=== PATIENT | male | born 1960 | race African-American/Black ===

== ENCOUNTER 2018-12-29 08:25 | Inpatient (IN) | payer MEDICAID ==
[~2018-12-29] VITALS: Ht 157.5 cm; Wt 110.2 kg
[2018-12-29] MEDS ORDERED: MORPHINE SULFATE 4 MG/ML CPJ (NOT FOR IM USE) IV ONE (10:45)
[2018-12-29 11:07] LABS: BASOPHILS % 0.6 % (0.0-2.0); EOSINOPHILS % 0.4 % (0.0-5.0); HEMATOCRIT. 37.9 % (42.0-52.0); HEMOGLOBIN. 12.7 g/dL (14.0-18.0); LYMPHOCYTES % 11.3 % (20.0-50.0); MEAN CORPUSCULAR HEMOGLOBIN 29.1 pg (28.0-32.0); MEAN CORPUSCULAR VOLUME 87.2 fL (80.0-94.0); MONOCYTES % 10.1 % (2.0-8.0); NEUTROPHILS % 77.6 % (40.0-76.0); PLATELET 318 x1000/uL (130-400); RED BLOOD CELL COUNT 4.35 mill/uL (4.7-6.1); RED CELL DISTRIBUTION WIDTH 14.3 % (11.6-14.6)
[2018-12-29 11:13] LABS: CHLORIDE 106 mEq/L (98-107)
[2018-12-29] MEDS ORDERED: MAGNESIUM/ALUMINUM HYDROXIDE/SIMETHICONE 30ML UDC PO PRN (13:00)
[2018-12-29] MEDS ORDERED: CLONIDINE 0.1MG TABLET PO PRN (13:00)
[2018-12-29] MEDS ORDERED: ONDANSETRON HCL 4MG/2ML INJ IV PRN (13:00)
[2018-12-29] MEDS ORDERED: GUAIFENESIN 200MG/10ML SUGAR FREE UDC PO PRN (13:00)
[2018-12-29] MEDS ORDERED: DOCUSATE SODIUM 100MG CAPSULE PO PRN (13:00)
[2018-12-29] MEDS ORDERED: POTASSIUM CHLORIDE 20MEQ/PACKET PO ONE (13:00)
[2018-12-29] MEDS ORDERED: DIPHENHYDRAMINE 50MG/ML VIAL IV PRN (13:00)
[2018-12-29 13:12] LABS: PHOSPHORUS 3.9 mg/dL (2.5-4.9)
[2018-12-29] MEDS ORDERED: ENOXAPARIN 40MG/0.4ML SYR SUBCUT NR (13:30)
[2018-12-30] VITALS (9 sets, daily range): BP systolic 119–166; BP diastolic 72–96
[2018-12-30] MEDS: HYDROCODONE/ACETAMINOPHEN 5/325MG TABLET PO PRN ×5 (00:40→13:46)
[2018-12-30 07:23] LABS: CHLORIDE 106 mEq/L (98-107)
[2018-12-30 07:31] LABS: BASOPHILS % 0.4 % (0.0-2.0); EOSINOPHILS % 0.6 % (0.0-5.0); HEMATOCRIT. 36.3 % (42.0-52.0); HEMOGLOBIN. 12.2 g/dL (14.0-18.0); LYMPHOCYTES % 13.7 % (20.0-50.0); MEAN CORPUSCULAR HEMOGLOBIN 29.4 pg (28.0-32.0); MEAN CORPUSCULAR VOLUME 87.7 fL (80.0-94.0); MEAN PLATELET VOLUME 9.1 fl (7.4-10.4); MONOCYTES % 13.1 % (2.0-8.0); NEUTROPHILS % 72.2 % (40.0-76.0); PLATELET 327 x1000/uL (130-400); RED BLOOD CELL COUNT 4.14 mill/uL (4.7-6.1); RED CELL DISTRIBUTION WIDTH 14.5 % (11.6-14.6)
[2018-12-30 07:35] LABS: LDL CHOLESTEROL 103 mg/dL (5-100)
[2018-12-30 07:37] LABS: HDL CHOLESTEROL 31 mg/dL (40-59)
[2018-12-30] MEDS ORDERED: POTASSIUM CHLORIDE 20MEQ/PACKET PO NR (12:30)
[2018-12-30 13:34] LABS: HEPATITIS B SURFACE ANTIGEN NEGATIVE
[2018-12-30] MEDS ORDERED: ENOXAPARIN 40MG/0.4ML SYR SUBCUT SCH (14:00)
[2018-12-30 14:03] LABS: HEPATITIS A AB IGM NEGATIVE (NEGATIVE)
[2018-12-30] MEDS: DEXAMETHASONE 4MG/ML 1ML VIAL IV SCH ×2 (14:08→21:20)
[2018-12-30 16:02] LABS: PROTHROMBIN TIME 10.7 sec (9.6-11.0)
[2018-12-30 16:12] LABS: CREATINE KINASE 1290 IU/L (39-308)
[2018-12-30 16:46] LABS: T4 FREE 1.18 ng/dL (0.76-1.46)
[2018-12-30] MEDS: CEFTRIAXONE 1 G PREMIX 50 ML IV SCH (18:45)
[2018-12-30] MEDS: IPRATROPIUM/ALBUTEROL 0.5-3(2.5)MG/3ML NEB INH PRN (21:03)
[2018-12-30] MEDS: BUDESONIDE 0.5MG/2ML NEB HHN SCH (21:03)
[2018-12-31] VITALS (67 sets, daily range): BP systolic 82–165; BP diastolic 50–96
[2018-12-31] MEDS: DEXAMETHASONE 4MG/ML 1ML VIAL IV SCH ×4 (02:52→20:21)
[2018-12-31 03:59] LABS: CLARITY URINE CLEAR (CLEAR); COLOR URINE DARK YELLOW (YELLOW); KETONES URINE NEGATIVE (NEGATIVE); LEUKOCYTE ESTERASE URINE NEGATIVE (NEGATIVE); NITRITE URINE NEGATIVE (NEGATIVE); OCCULT BLOOD URINE NEGATIVE (NEGATIVE); PH URINE 6.5 (4.5-8.0); PROTEIN URINE TRACE (NEGATIVE); SPECIFIC GRAVITY URINE 1.025 (1.005-1.030)
[2018-12-31 04:32] LABS: *AMPHETAMINES SCREEN URINE NEGATIVE (NEGATIVE); *BARBITURATES SCREEN URINE NEGATIVE (NEGATIVE); *BENZODIAZEPINES SCREEN URINE NEGATIVE (NEGATIVE); *COCAINE SCREEN URINE NEGATIVE (NEGATIVE); METHADONE URINE SCREEN NEGATIVE (NEGATIVE); OPIATES URINE SCREEN PRESUMTIVE POSITIVE (NEGATIVE)
[2018-12-31 04:33] LABS: CANNABINOID URINE SCREEN NEGATIVE (NEGATIVE); PHENCYCLIDINE URINE SCREEN NEGATIVE (NEGATIVE)
[2018-12-31] MEDS ORDERED: NORMAL SALINE 0.9% 10 ML SYR ONE (06:00)
[2018-12-31] MEDS ORDERED: THROMBIN (BOVINE) 5000 UNITS/VIAL TOP ONE (06:00)
[2018-12-31] MEDS ORDERED: BACITRACIN 50,000 UNITS/VIAL ONE (06:01)
[2018-12-31] MEDS ORDERED: LIDOCAINE HCL/EPINEPHRINE 1%-EPI 1:100,000 20 ML VIAL ONE (06:01)
[2018-12-31 06:29] LABS: CHLORIDE 106 mEq/L (98-107)
[2018-12-31 06:31] LABS: HEMATOCRIT. 36.2 % (42.0-52.0); HEMOGLOBIN. 11.9 g/dL (14.0-18.0); MEAN CORPUSCULAR HEMOGLOBIN 28.9 pg (28.0-32.0); MEAN CORPUSCULAR VOLUME 87.6 fL (80.0-94.0); PLATELET 345 x1000/uL (130-400); RED BLOOD CELL COUNT 4.13 mill/uL (4.7-6.1); RED CELL DISTRIBUTION WIDTH 14.3 % (11.6-14.6)
[2018-12-31] MEDS ORDERED: FENTANYL CITRATE/PF 50MCG/ML 5ML VIAL ONE (06:46)
[2018-12-31] MEDS ORDERED: PROPOFOL 200MG/20ML VIAL IV ONE ×2 (06:46→08:01)
[2018-12-31] MEDS ORDERED: LIDOCAINE HCL/PF 1% 10 MG/ML 5ML VIAL ONE (06:46)
[2018-12-31] MEDS ORDERED: ROCURONIUM BROMIDE 10MG/ML VIAL 5ML IV ONE ×2 (06:46→07:50)
[2018-12-31] MEDS ORDERED: SODIUM CHLORIDE 0.9% 10ML VIAL ONE ×3 (06:46→07:43)
[2018-12-31] MEDS ORDERED: PHENYLEPHRINE HCL 10 MG/ML 1ML (IV VIAL) IV ONE (06:49)
[2018-12-31] MEDS ORDERED: CEFAZOLIN SODIUM 1000MG/VIAL ONE (07:43)
[2018-12-31] MEDS ORDERED: DEXAMETHASONE 4MG/ML 1ML VIAL ONE (07:44)
[2018-12-31] MEDS ORDERED: NICARDIPINE 100 MG in SODIUM CHLORIDE 0.9% 60 ML IV PRN (08:00)
[2018-12-31] MEDS: BUDESONIDE 0.5MG/2ML NEB HHN SCH ×2 (08:39→20:36)
[2018-12-31] MEDS: IPRATROPIUM/ALBUTEROL 0.5-3(2.5)MG/3ML NEB INH PRN ×2 (08:40→20:35)
[2018-12-31] MEDS ORDERED: HYDROMORPHONE HCL/PF 2MG/ML (OR) ONE (08:42)
[2018-12-31 09:10] LABS: PLATELET ESTIMATE NORMAL
[2018-12-31] MEDS ORDERED: GLYCOPYRROLATE 0.2 MG/ML 2ML VIAL ONE (09:14)
[2018-12-31] MEDS ORDERED: NEOSTIGMINE METHYLSULFATE 1MG/ML 10 ML VIAL ONE (09:14)
[2018-12-31 09:17] LABS: HIV SCREEN 4G Non Reactive (Non Reactive)
[2018-12-31] MEDS ORDERED: METOCLOPRAMIDE HCL 10MG/2ML VIAL ONE (09:19)
[2018-12-31] MEDS ORDERED: ONDANSETRON HCL 4MG/2ML INJ ONE (09:19)
[2018-12-31] MEDS ORDERED: KETOROLAC 30MG/ML VIAL ONE (09:20)
[2018-12-31] MEDS: MORPHINE SULFATE 4 MG/ML CPJ (NOT FOR IM USE) IV PRN (10:27)
[2018-12-31] MEDS ORDERED: HYDROMORPHONE PCA 10MG/50ML IV PRN (10:30)
[2018-12-31] MEDS ORDERED: NALOXONE INJ IV PRN (10:30)
[2018-12-31] MEDS ORDERED: DIPHENHYDRAMINE INJ IV PRN (10:30)
[2018-12-31] MEDS ORDERED: ONDANSETRON INJ IV PRN (10:30)
[2018-12-31] MEDS: NICARDIPINE 100 MG in SODIUM CHLORIDE 0.9% 60 ML IV PRN ×2 (10:34→17:23)
[2018-12-31] MEDS: DEXT 5%/LACTATED RINGERS 1,000 ML IV SCH ×2 (10:36→18:09)
[2018-12-31] MEDS: MORPHINE SULFATE 2 MG/ML CPJ (NOT FOR IM USE) IV NR (11:00)
[2018-12-31] MEDS: CEFAZOLIN 1000MG PREMIX 50 ML IV SCH ×2 (13:35→21:32)
[2018-12-31] MEDS ORDERED: CEFAZOLIN SODIUM 1000MG/VIAL IV SCH (14:00)
[2018-12-31] MEDS ORDERED: BISACODYL 5MG TABLET PO PRN (14:15)
[2018-12-31] MEDS: DOCUSATE SODIUM 100MG CAPSULE PO SCH (17:00)
[2018-12-31] MEDS: CEFTRIAXONE 1 G PREMIX 50 ML IV SCH (18:13)
[2019-01-01] VITALS (71 sets, daily range): BP systolic 0–151; BP diastolic 0–99
[2019-01-01] MEDS: NICARDIPINE 100 MG in SODIUM CHLORIDE 0.9% 60 ML IV PRN ×2 (00:26→09:55)
[2019-01-01] MEDS: DEXAMETHASONE 4MG/ML 1ML VIAL IV SCH ×3 (02:00→13:59)
[2019-01-01 06:15] LABS: CHLORIDE 106 mEq/L (98-107)
[2019-01-01] MEDS: CEFAZOLIN 1000MG PREMIX 50 ML IV SCH (06:25)
[2019-01-01 06:30] LABS: HEMATOCRIT. 36.2 % (42.0-52.0); HEMOGLOBIN. 12.2 g/dL (14.0-18.0); MEAN CORPUSCULAR HEMOGLOBIN 29.5 pg (28.0-32.0); MEAN CORPUSCULAR VOLUME 87.7 fL (80.0-94.0); MEAN PLATELET VOLUME 8.8 fl (7.4-10.4); PLATELET 375 x1000/uL (130-400); RED BLOOD CELL COUNT 4.12 mill/uL (4.7-6.1); RED CELL DISTRIBUTION WIDTH 14.3 % (11.6-14.6)
[2019-01-01 07:28] LABS: PLATELET ESTIMATE NORMAL
[2019-01-01] MEDS: BUDESONIDE 0.5MG/2ML NEB HHN SCH ×3 (08:11→21:51)
[2019-01-01] MEDS: IPRATROPIUM/ALBUTEROL 0.5-3(2.5)MG/3ML NEB INH PRN (08:11)
[2019-01-01] MEDS: DOCUSATE SODIUM 100MG CAPSULE PO SCH ×2 (08:18→16:36)
[2019-01-01] MEDS: DEXT 5%/LACTATED RINGERS 1,000 ML IV SCH ×2 (13:24→21:50)
[2019-01-01] MEDS: AMLODIPINE 5MG TABLET PO SCH ×2 (16:37→21:48)
[2019-01-01] MEDS: CEFTRIAXONE 1 G PREMIX 50 ML IV SCH (18:03)
[2019-01-01] MEDS: MORPHINE SULFATE 4 MG/ML CPJ (NOT FOR IM USE) IV PRN (21:49)
[2019-01-02 00:15] VITALS: BP 124/70
[2019-01-02] MEDS: HYDROCODONE/ACETAMINOPHEN 5/325MG TABLET PO PRN (00:42)
[2019-01-02 04:00] VITALS: BP 120/70
[2019-01-02 06:30] LABS: HEMATOCRIT. 34.9 % (42.0-52.0); HEMOGLOBIN. 11.5 g/dL (14.0-18.0); LYMPHOCYTES % 7.4 % (20.0-50.0); MEAN CORPUSCULAR HEMOGLOBIN 28.7 pg (28.0-32.0); MEAN CORPUSCULAR VOLUME 87.1 fL (80.0-94.0); MONOCYTES % 7.3 % (2.0-8.0); NEUTROPHILS % 85.3 % (40.0-76.0); PLATELET 392 x1000/uL (130-400); RED BLOOD CELL COUNT 4.01 mill/uL (4.7-6.1); RED CELL DISTRIBUTION WIDTH 14.1 % (11.6-14.6)
[2019-01-02 06:31] LABS: CHLORIDE 108 mEq/L (98-107)
[2019-01-02] MEDS: DEXT 5%/LACTATED RINGERS 1,000 ML IV SCH ×3 (07:01→21:27)
[2019-01-02 08:00] VITALS: BP 139/79
[2019-01-02] MEDS: DOCUSATE SODIUM 100MG CAPSULE PO SCH ×2 (09:06→18:01)
[2019-01-02] MEDS: AMLODIPINE 5MG TABLET PO SCH ×2 (09:07→20:30)
[2019-01-02] MEDS: BUDESONIDE 0.5MG/2ML NEB HHN SCH ×2 (10:25→21:57)
[2019-01-02] MEDS: MORPHINE SULFATE 4 MG/ML CPJ (NOT FOR IM USE) IV PRN ×2 (10:50→20:30)
[2019-01-02 12:00] VITALS: BP 131/79
[2019-01-02 15:15] LABS: ATYPICAL P-ANCA <1:20 titer (Neg:<1:20); CYTOPLASMIC C-ANCA <1:20 titer (Neg:<1:20); PERINUCLEAR P-ANCA <1:20 titer (Neg:<1:20)
[2019-01-02 16:00] VITALS: BP 138/80
[2019-01-02] MEDS: CEFTRIAXONE 1 G PREMIX 50 ML IV SCH (18:01)
[2019-01-02 20:00] VITALS: BP 133/77
[2019-01-03] VITALS: BP 148/68
[2019-01-03 04:00] VITALS: BP 154/92
[2019-01-03] MEDS: DEXT 5%/LACTATED RINGERS 1,000 ML IV SCH ×3 (05:04→21:27)
[2019-01-03 07:07] LABS: BASOPHILS % 0.1 % (0.0-2.0); EOSINOPHILS % 0.6 % (0.0-5.0); HEMATOCRIT. 37.7 % (42.0-52.0); HEMOGLOBIN. 12.6 g/dL (14.0-18.0); MEAN CORPUSCULAR HEMOGLOBIN 29.3 pg (28.0-32.0); MEAN CORPUSCULAR VOLUME 87.8 fL (80.0-94.0); MEAN PLATELET VOLUME 8.5 fl (7.4-10.4); MONOCYTES % 10.6 % (2.0-8.0); NEUTROPHILS % 63.7 % (40.0-76.0); PLATELET 400 x1000/uL (130-400); RED CELL DISTRIBUTION WIDTH 14.2 % (11.6-14.6)
[2019-01-03 07:14] LABS: CHLORIDE 107 mEq/L (98-107)
[2019-01-03 08:00] VITALS: BP 111/56
[2019-01-03] MEDS: AMLODIPINE 5MG TABLET PO SCH ×2 (09:07→21:49)
[2019-01-03] MEDS: DOCUSATE SODIUM 100MG CAPSULE PO SCH ×2 (09:07→16:01)
[2019-01-03] MEDS: MORPHINE SULFATE 4 MG/ML CPJ (NOT FOR IM USE) IV PRN ×3 (09:08→22:08)
[2019-01-03 12:00] VITALS: BP 120/72
[2019-01-03 16:00] VITALS: BP 124/77
[2019-01-03 17:15] LABS: ANTI-MYELOPEROXIDASE AB < 9.0 U/mL (0.0-9.0); ANTI-PROTEINASE 3 ABS < 3.5 U/mL (0.0-3.5)
[2019-01-03] MEDS: CEFTRIAXONE 1 G PREMIX 50 ML IV SCH (18:08)
[2019-01-03 20:17] VITALS: BP 113/73
[2019-01-04] VITALS: BP 127/80
[2019-01-04] MEDS: DEXT 5%/LACTATED RINGERS 1,000 ML IV SCH ×3 (02:51→21:08)
[2019-01-04 04:00] VITALS: BP 153/78
[2019-01-04 08:00] VITALS: BP 118/81
[2019-01-04 08:18] LABS: CHLORIDE 101 mEq/L (98-107)
[2019-01-04 08:26] LABS: BASOPHILS % 0.2 % (0.0-2.0); EOSINOPHILS % 1.4 % (0.0-5.0); HEMATOCRIT. 37.8 % (42.0-52.0); LYMPHOCYTES % 17.1 % (20.0-50.0); MEAN CORPUSCULAR VOLUME 87.2 fL (80.0-94.0); MEAN PLATELET VOLUME 8.7 fl (7.4-10.4); MONOCYTES % 9.1 % (2.0-8.0); NEUTROPHILS % 72.2 % (40.0-76.0); PLATELET 397 x1000/uL (130-400); RED BLOOD CELL COUNT 4.34 mill/uL (4.7-6.1); RED CELL DISTRIBUTION WIDTH 14.3 % (11.6-14.6)
[2019-01-04] MEDS: AMLODIPINE 5MG TABLET PO SCH ×2 (08:51→21:05)
[2019-01-04] MEDS: MORPHINE SULFATE 4 MG/ML CPJ (NOT FOR IM USE) IV PRN ×3 (08:51→21:08)
[2019-01-04] MEDS: DOCUSATE SODIUM 100MG CAPSULE PO SCH ×2 (08:51→17:11)
[2019-01-04] MEDS: CEFTRIAXONE 1 G PREMIX 50 ML IV SCH (17:11)
[2019-01-04] MEDS ORDERED: LACTULOSE 20G/30ML UDC PO NR (18:30)
[2019-01-04 20:00] VITALS: BP 125/75
[2019-01-05] VITALS: BP 121/74
[2019-01-05 04:00] VITALS: BP 132/70
[2019-01-05] MEDS: MORPHINE SULFATE 4 MG/ML CPJ (NOT FOR IM USE) IV PRN (05:58)
[2019-01-05] MEDS: DEXT 5%/LACTATED RINGERS 1,000 ML IV SCH ×3 (06:55→21:56)
[2019-01-05 07:08] LABS: CHLORIDE 101 mEq/L (98-107)
[2019-01-05 07:15] LABS: BASOPHILS % 0.3 % (0.0-2.0); EOSINOPHILS % 1.8 % (0.0-5.0); HEMATOCRIT. 35.3 % (42.0-52.0); HEMOGLOBIN. 12.2 g/dL (14.0-18.0); MEAN PLATELET VOLUME 8.4 fl (7.4-10.4); MONOCYTES % 9.7 % (2.0-8.0); NEUTROPHILS % 74.2 % (40.0-76.0); PLATELET 396 x1000/uL (130-400); RED BLOOD CELL COUNT 4.05 mill/uL (4.7-6.1); RED CELL DISTRIBUTION WIDTH 14.5 % (11.6-14.6)
[2019-01-05 08:00] VITALS: BP 125/63
[2019-01-05] MEDS: AMLODIPINE 5MG TABLET PO SCH ×2 (09:18→21:57)
[2019-01-05] MEDS: DOCUSATE SODIUM 100MG CAPSULE PO SCH ×2 (09:18→15:59)
[2019-01-05 12:00] VITALS: BP 118/68
[2019-01-05] MEDS ORDERED: LACTULOSE 20G/30ML UDC PO NR (13:45)
[2019-01-05] MEDS: CEFTRIAXONE 1 G PREMIX 50 ML IV SCH (15:59)
[2019-01-05 16:00] VITALS: BP 127/72
[2019-01-05 20:00] VITALS: BP 138/92
[2019-01-05] MEDS: ACETAMINOPHEN 325MG TABLET PO PRN (23:59)
[2019-01-06] VITALS: BP 115/69
[2019-01-06 04:00] VITALS: BP 126/72
[2019-01-06] MEDS: DEXT 5%/LACTATED RINGERS 1,000 ML IV SCH ×2 (06:35→15:19)
[2019-01-06 06:50] LABS: BASOPHILS % 0.4 % (0.0-2.0); HEMATOCRIT. 39.4 % (42.0-52.0); HEMOGLOBIN. 13.1 g/dL (14.0-18.0); MEAN CORPUSCULAR HEMOGLOBIN 29.1 pg (28.0-32.0); MEAN CORPUSCULAR VOLUME 87.8 fL (80.0-94.0); MEAN PLATELET VOLUME 8.7 fl (7.4-10.4); MONOCYTES % 9.7 % (2.0-8.0); NEUTROPHILS % 75.9 % (40.0-76.0); PLATELET 396 x1000/uL (130-400); RED BLOOD CELL COUNT 4.49 mill/uL (4.7-6.1); RED CELL DISTRIBUTION WIDTH 14.3 % (11.6-14.6)
[2019-01-06 08:00] VITALS: BP 139/87
[2019-01-06] MEDS: AMLODIPINE 5MG TABLET PO SCH ×2 (09:05→20:53)
[2019-01-06] MEDS: DOCUSATE SODIUM 100MG CAPSULE PO SCH ×2 (09:05→18:44)
[2019-01-06] MEDS: ACETAMINOPHEN 325MG TABLET PO PRN (09:06)
[2019-01-06] MEDS: MORPHINE SULFATE 4 MG/ML CPJ (NOT FOR IM USE) IV PRN ×3 (10:57→20:54)
[2019-01-06 12:00] VITALS: BP 125/76
[2019-01-06] MEDS ORDERED: BISACODYL 10MG SUPP PR PRN (14:15)
[2019-01-06] MEDS ORDERED: NA PHOS,M-B/NA PHOS,DI-BA ENEMA 118ML PR PRN (14:45)
[2019-01-06] MEDS ORDERED: NA PHOS,M-B/NA PHOS,DI-BA ENEMA 118ML PR NR (15:00)
[2019-01-06] MEDS: LACTULOSE 20G/30ML UDC PO SCH ×3 (15:19→21:00)
[2019-01-06 16:00] VITALS: BP 131/66
[2019-01-06] MEDS: CEFTRIAXONE 1 G PREMIX 50 ML IV SCH (18:44)
[2019-01-06 20:00] VITALS: BP 123/70
[2019-01-07] VITALS: BP 135/68
[2019-01-07] MEDS: MORPHINE SULFATE 4 MG/ML CPJ (NOT FOR IM USE) IV PRN ×5 (01:02→22:38)
[2019-01-07] MEDS: DEXT 5%/LACTATED RINGERS 1,000 ML IV SCH ×3 (03:18→22:37)
[2019-01-07 07:50] LABS: EOSINOPHILS % 1.5 % (0.0-5.0); HEMATOCRIT. 37.2 % (42.0-52.0); HEMOGLOBIN. 12.2 g/dL (14.0-18.0); LYMPHOCYTES % 13.4 % (20.0-50.0); MEAN CORPUSCULAR HEMOGLOBIN 28.6 pg (28.0-32.0); MEAN CORPUSCULAR VOLUME 87.5 fL (80.0-94.0); MEAN PLATELET VOLUME 8.5 fl (7.4-10.4); MONOCYTES % 10.5 % (2.0-8.0); NEUTROPHILS % 73.6 % (40.0-76.0); PLATELET 404 x1000/uL (130-400); RED BLOOD CELL COUNT 4.26 mill/uL (4.7-6.1); RED CELL DISTRIBUTION WIDTH 14.3 % (11.6-14.6)
[2019-01-07 08:00] VITALS: BP 126/73
[2019-01-07 09:34] LABS: CHLORIDE 100 mEq/L (98-107)
[2019-01-07] MEDS: AMLODIPINE 5MG TABLET PO SCH ×2 (10:00→21:00)
[2019-01-07] MEDS: DOCUSATE SODIUM 100MG CAPSULE PO SCH ×2 (10:00→18:31)
[2019-01-07] MEDS: LIDOCAINE 5% PATCH TOP SCH (10:01)
[2019-01-07 12:00] VITALS: BP 124/70
[2019-01-07] MEDS: TRAMADOL 50MG TABLET PO SCH ×2 (12:37→18:31)
[2019-01-07 16:00] VITALS: BP 129/70
[2019-01-07 20:00] VITALS: BP 122/69
[2019-01-08] VITALS: BP 129/74
[2019-01-08 04:00] VITALS: BP 120/72
[2019-01-08] MEDS: DEXT 5%/LACTATED RINGERS 1,000 ML IV SCH ×3 (07:19→22:16)
[2019-01-08] MEDS: TRAMADOL 50MG TABLET PO SCH ×3 (07:21→17:22)
[2019-01-08 07:23] LABS: BASOPHILS % 0.5 % (0.0-2.0); EOSINOPHILS % 1.4 % (0.0-5.0); LYMPHOCYTES % 13.4 % (20.0-50.0); MEAN CORPUSCULAR HEMOGLOBIN 28.9 pg (28.0-32.0); MEAN PLATELET VOLUME 8.3 fl (7.4-10.4); NEUTROPHILS % 73.7 % (40.0-76.0); PLATELET 399 x1000/uL (130-400); RED BLOOD CELL COUNT 4.14 mill/uL (4.7-6.1); RED CELL DISTRIBUTION WIDTH 14.6 % (11.6-14.6)
[2019-01-08 07:41] LABS: CHLORIDE 100 mEq/L (98-107)
[2019-01-08 08:00] VITALS: BP 120/67
[2019-01-08] MEDS: LIDOCAINE 5% PATCH TOP SCH (09:00)
[2019-01-08] MEDS: AMLODIPINE 5MG TABLET PO SCH ×2 (09:54→21:32)
[2019-01-08] MEDS: DOCUSATE SODIUM 100MG CAPSULE PO SCH ×2 (09:54→17:21)
[2019-01-08] MEDS: MORPHINE SULFATE 4 MG/ML CPJ (NOT FOR IM USE) IV PRN ×3 (09:55→21:32)
[2019-01-08] MEDS: HYDROCODONE/ACETAMINOPHEN 5/325MG TABLET PO PRN (12:28)
[2019-01-08 15:46] VITALS: BP 130/90
[2019-01-08 20:00] VITALS: BP 135/74
[2019-01-08] MEDS: ACETAMINOPHEN 325MG TABLET PO PRN (20:59)
[2019-01-09] VITALS: BP 142/83
[2019-01-09 04:00] VITALS: BP 120/68
[2019-01-09] MEDS: MORPHINE SULFATE 4 MG/ML CPJ (NOT FOR IM USE) IV PRN ×2 (04:16→11:58)
[2019-01-09 06:17] LABS: BASOPHILS % 0.5 % (0.0-2.0); EOSINOPHILS % 1.1 % (0.0-5.0); HEMOGLOBIN. 12.4 g/dL (14.0-18.0); LYMPHOCYTES % 10.6 % (20.0-50.0); MEAN CORPUSCULAR HEMOGLOBIN 29.1 pg (28.0-32.0); MEAN CORPUSCULAR VOLUME 86.9 fL (80.0-94.0); MEAN PLATELET VOLUME 8.4 fl (7.4-10.4); MONOCYTES % 11.6 % (2.0-8.0); NEUTROPHILS % 76.2 % (40.0-76.0); PLATELET 387 x1000/uL (130-400); RED BLOOD CELL COUNT 4.26 mill/uL (4.7-6.1); RED CELL DISTRIBUTION WIDTH 14.3 % (11.6-14.6)
[2019-01-09] MEDS: DEXT 5%/LACTATED RINGERS 1,000 ML IV SCH ×2 (06:22→17:34)
[2019-01-09 07:28] LABS: CHLORIDE 96 mEq/L (98-107)
[2019-01-09 08:19] VITALS: BP 147/81
[2019-01-09] MEDS: TRAMADOL 50MG TABLET PO SCH ×3 (08:50→17:33)
[2019-01-09] MEDS: DOCUSATE SODIUM 100MG CAPSULE PO SCH ×2 (08:50→17:33)
[2019-01-09] MEDS: AMLODIPINE 5MG TABLET PO SCH ×2 (08:50→20:18)
[2019-01-09] MEDS: LIDOCAINE 5% PATCH TOP SCH (08:50)
[2019-01-09 12:00] VITALS: BP 129/67
[2019-01-09 13:23] LABS: CLARITY URINE CLEAR (CLEAR); COLOR URINE YELLOW (YELLOW); KETONES URINE NEGATIVE (NEGATIVE); LEUKOCYTE ESTERASE URINE NEGATIVE (NEGATIVE); NITRITE URINE NEGATIVE (NEGATIVE); OCCULT BLOOD URINE NEGATIVE (NEGATIVE); PROTEIN URINE NEGATIVE (NEGATIVE); SPECIFIC GRAVITY URINE 1.008 (1.005-1.030)
[2019-01-09 16:00] VITALS: BP 130/72
[2019-01-09 20:00] VITALS: BP 118/65
[2019-01-09] MEDS: HYDROCODONE/ACETAMINOPHEN 5/325MG TABLET PO PRN (20:18)
[2019-01-10] VITALS: BP 121/65
[2019-01-10] MEDS: DEXT 5%/LACTATED RINGERS 1,000 ML IV SCH ×4 (03:30→23:25)
[2019-01-10 04:00] VITALS: BP 117/63
[2019-01-10] MEDS: MORPHINE SULFATE 4 MG/ML CPJ (NOT FOR IM USE) IV PRN (04:33)
[2019-01-10 06:18] LABS: BASOPHILS % 0.4 % (0.0-2.0); EOSINOPHILS % 0.5 % (0.0-5.0); HEMATOCRIT. 34.6 % (42.0-52.0); HEMOGLOBIN. 11.6 g/dL (14.0-18.0); LYMPHOCYTES % 11.1 % (20.0-50.0); MEAN CORPUSCULAR HEMOGLOBIN 28.9 pg (28.0-32.0); MEAN CORPUSCULAR VOLUME 86.3 fL (80.0-94.0); MEAN PLATELET VOLUME 7.9 fl (7.4-10.4); MONOCYTES % 10.5 % (2.0-8.0); NEUTROPHILS % 77.5 % (40.0-76.0); PLATELET 377 x1000/uL (130-400); RED BLOOD CELL COUNT 4.02 mill/uL (4.7-6.1); RED CELL DISTRIBUTION WIDTH 14.3 % (11.6-14.6)
[2019-01-10 06:42] LABS: CHLORIDE 100 mEq/L (98-107)
[2019-01-10 08:00] VITALS: BP 126/73
[2019-01-10] MEDS: TRAMADOL 50MG TABLET PO SCH ×3 (08:51→16:34)
[2019-01-10] MEDS: AMLODIPINE 5MG TABLET PO SCH ×2 (08:51→21:27)
[2019-01-10] MEDS: DOCUSATE SODIUM 100MG CAPSULE PO SCH ×2 (08:51→16:34)
[2019-01-10] MEDS: LIDOCAINE 5% PATCH TOP SCH (09:00)
[2019-01-10] MEDS ORDERED: OXYCODONE HCL 5MG TABLET PO PRN (10:00)
[2019-01-10] MEDS ORDERED: BISACODYL 10MG SUPP PR PRN (10:00)
[2019-01-10] MEDS: LACTULOSE 20G/30ML UDC PO SCH ×3 (10:09→16:34)
[2019-01-10 12:00] VITALS: BP 128/73
[2019-01-10 16:07] VITALS: BP 148/82
[2019-01-10] MEDS ORDERED: DOCUSATE SODIUM 100MG CAPSULE PO SCH (17:00)
[2019-01-10 20:00] VITALS: BP 130/73
[2019-01-10] MEDS: POLYETHYLENE GLYCOL 3350 (17GM) 1 DOSE PACK PO SCH (21:27)
[2019-01-11] VITALS: BP 134/76
[2019-01-11] MEDS: PREDNISONE 20MG TABLET PO SCH ×3 (01:14→17:45)
[2019-01-11 04:00] VITALS: BP 122/65
[2019-01-11 06:26] LABS: HEMATOCRIT. 34.6 % (42.0-52.0); HEMOGLOBIN. 11.5 g/dL (14.0-18.0); MEAN CORPUSCULAR HEMOGLOBIN 28.8 pg (28.0-32.0); MEAN CORPUSCULAR VOLUME 86.8 fL (80.0-94.0); MEAN PLATELET VOLUME 8.1 fl (7.4-10.4); PLATELET 412 x1000/uL (130-400); RED BLOOD CELL COUNT 3.99 mill/uL (4.7-6.1); RED CELL DISTRIBUTION WIDTH 14.4 % (11.6-14.6)
[2019-01-11 08:00] VITALS: BP 131/68
[2019-01-11] MEDS: LIDOCAINE 5% PATCH TOP SCH (09:00)
[2019-01-11] MEDS: POLYETHYLENE GLYCOL 3350 (17GM) 1 DOSE PACK PO SCH (09:01)
[2019-01-11] MEDS: DOCUSATE SODIUM 100MG CAPSULE PO SCH ×2 (09:01→17:45)
[2019-01-11] MEDS: DICLOFENAC SODIUM 75MG DR (EC) TABLET PO SCH ×2 (09:02→20:46)
[2019-01-11] MEDS: AMLODIPINE 5MG TABLET PO SCH ×2 (09:02→20:46)
[2019-01-11] MEDS: TRAMADOL 50MG TABLET PO SCH ×3 (09:07→17:43)
[2019-01-11] MEDS: DEXT 5%/LACTATED RINGERS 1,000 ML IV SCH ×3 (09:14→21:27)
[2019-01-11 12:00] VITALS: BP 119/65
[2019-01-11 13:24] LABS: PLATELET ESTIMATE INCREASED
[2019-01-11 16:00] VITALS: BP 137/74
[2019-01-11 20:00] VITALS: BP 130/77
[2019-01-11] MEDS ORDERED: NA PHOS,M-B/NA PHOS,DI-BA ENEMA 118ML PR PRN (21:30)
[2019-01-11] MEDS ORDERED: LACTULOSE 20G/30ML UDC PO NR (21:30)
[2019-01-12] VITALS: BP 121/71
[2019-01-12 04:00] VITALS: BP 133/73
[2019-01-12] MEDS: DEXT 5%/LACTATED RINGERS 1,000 ML IV SCH ×2 (05:26→17:16)
[2019-01-12 07:13] LABS: BASOPHILS % 0.3 % (0.0-2.0); EOSINOPHILS % 0.1 % (0.0-5.0); HEMATOCRIT. 33.3 % (42.0-52.0); HEMOGLOBIN. 11.1 g/dL (14.0-18.0); LYMPHOCYTES % 12.5 % (20.0-50.0); MEAN CORPUSCULAR HEMOGLOBIN 28.9 pg (28.0-32.0); MEAN CORPUSCULAR VOLUME 86.4 fL (80.0-94.0); NEUTROPHILS % 82.1 % (40.0-76.0); PLATELET 425 x1000/uL (130-400); RED BLOOD CELL COUNT 3.86 mill/uL (4.7-6.1); RED CELL DISTRIBUTION WIDTH 14.2 % (11.6-14.6)
[2019-01-12 07:35] LABS: CHLORIDE 102 mEq/L (98-107)
[2019-01-12 08:00] VITALS: BP 132/79
[2019-01-12] MEDS: DOCUSATE SODIUM 100MG CAPSULE PO SCH ×2 (08:52→17:15)
[2019-01-12] MEDS: DICLOFENAC SODIUM 75MG DR (EC) TABLET PO SCH ×2 (08:52→20:44)
[2019-01-12] MEDS: PREDNISONE 20MG TABLET PO SCH ×2 (08:52→17:15)
[2019-01-12] MEDS: AMLODIPINE 5MG TABLET PO SCH ×2 (08:52→20:44)
[2019-01-12] MEDS: LIDOCAINE 5% PATCH TOP SCH (09:00)
[2019-01-12] MEDS: POLYETHYLENE GLYCOL 3350 (17GM) 1 DOSE PACK PO SCH (09:25)
[2019-01-12 12:00] VITALS: BP 133/78
[2019-01-12 16:00] VITALS: BP 137/77
[2019-01-12 20:00] VITALS: BP 146/87
[2019-01-13] VITALS: BP 131/73
[2019-01-13] MEDS: DEXT 5%/LACTATED RINGERS 1,000 ML IV SCH ×3 (02:11→17:16)
[2019-01-13 04:00] VITALS: BP 124/82
[2019-01-13 08:00] VITALS: BP 118/67
[2019-01-13] MEDS: DICLOFENAC SODIUM 75MG DR (EC) TABLET PO SCH ×2 (08:51→20:10)
[2019-01-13] MEDS: DOCUSATE SODIUM 100MG CAPSULE PO SCH ×2 (08:51→17:15)
[2019-01-13] MEDS: AMLODIPINE 5MG TABLET PO SCH ×2 (08:51→20:11)
[2019-01-13] MEDS: PREDNISONE 20MG TABLET PO SCH ×2 (08:51→17:15)
[2019-01-13] MEDS: LIDOCAINE 5% PATCH TOP SCH (08:52)
[2019-01-13] MEDS: POLYETHYLENE GLYCOL 3350 (17GM) 1 DOSE PACK PO SCH (08:52)
[2019-01-13 12:00] VITALS: BP 119/73
[2019-01-13 16:00] VITALS: BP 133/83
[2019-01-13 20:00] VITALS: BP 134/79
[2019-01-14] VITALS (8 sets, daily range): BP systolic 113–136; BP diastolic 62–80
[2019-01-14] MEDS: DEXT 5%/LACTATED RINGERS 1,000 ML IV SCH ×4 (01:46→22:58)
[2019-01-14 07:38] LABS: BASOPHILS % 0.7 % (0.0-2.0); EOSINOPHILS % 0.6 % (0.0-5.0); HEMATOCRIT. 35.8 % (42.0-52.0); HEMOGLOBIN. 11.8 g/dL (14.0-18.0); LYMPHOCYTES % 26.4 % (20.0-50.0); MEAN CORPUSCULAR HEMOGLOBIN 28.7 pg (28.0-32.0); MEAN CORPUSCULAR VOLUME 87.2 fL (80.0-94.0); MEAN PLATELET VOLUME 7.6 fl (7.4-10.4); MONOCYTES % 7.2 % (2.0-8.0); NEUTROPHILS % 65.1 % (40.0-76.0); PLATELET 440 x1000/uL (130-400); RED BLOOD CELL COUNT 4.11 mill/uL (4.7-6.1); RED CELL DISTRIBUTION WIDTH 14.3 % (11.6-14.6)
[2019-01-14 07:59] LABS: CHLORIDE 106 mEq/L (98-107)
[2019-01-14] MEDS: POLYETHYLENE GLYCOL 3350 (17GM) 1 DOSE PACK PO SCH (08:48)
[2019-01-14] MEDS: AMLODIPINE 5MG TABLET PO SCH ×2 (08:49→20:22)
[2019-01-14] MEDS: DICLOFENAC SODIUM 75MG DR (EC) TABLET PO SCH ×2 (08:49→20:22)
[2019-01-14] MEDS: PREDNISONE 20MG TABLET PO SCH ×2 (08:49→16:41)
[2019-01-14] MEDS: DOCUSATE SODIUM 100MG CAPSULE PO SCH ×2 (08:49→16:19)
[2019-01-14] MEDS: LIDOCAINE 5% PATCH TOP SCH (08:53)
[2019-01-14 09:11] LABS: ALDOLASE 15.9 U/L (3.3-10.3)
[2019-01-14] MEDS: LACTULOSE 20G/30ML UDC PO SCH ×2 (14:25→20:22)
[2019-01-15] VITALS: BP 137/81
[2019-01-15 04:00] VITALS: BP 131/84
[2019-01-15] MEDS: DEXT 5%/LACTATED RINGERS 1,000 ML IV SCH ×2 (06:12→12:48)
[2019-01-15] MEDS: POLYETHYLENE GLYCOL 3350 (17GM) 1 DOSE PACK PO SCH (09:06)
[2019-01-15] MEDS: PREDNISONE 20MG TABLET PO SCH (09:07)
[2019-01-15] MEDS: DOCUSATE SODIUM 100MG CAPSULE PO SCH (09:07)
[2019-01-15] MEDS: AMLODIPINE 5MG TABLET PO SCH (09:07)
[2019-01-15 12:00] VITALS: BP 113/69
[2019-01-15 14:08] LABS: ANTI-JO 1 ABS <0.2 AI (0.0-0.9); RNP ANTIBODY 0.6 AI (0.0-0.9); SMITH ANTIBODY < 0.2 AI (0.0-0.9)
[2019-01-15] MEDS: DICLOFENAC SODIUM 75MG DR (EC) TABLET PO SCH (15:52)
[2019-01-15 16:00] VITALS: BP 122/77
== END 2019-01-15 19:04 | DRG 321 ==
LOC: ER 08:25 → 5WST 11:51 → EDBEDREQ 11:55 → EDBEDREQTM 11:55 → ENRESERV 19:49 → MICUNO 12-31 10:18 → 5WST 01-02 00:10 → 8WST 01-14 21:07
PROVIDERS: ADMIT Internal Medicine; ATTEND Internal Medicine
PROC: 00NW0ZZ Release Cervical Spinal Cord, Open Approach (ICD-10-PCS; principal; 2018-12-31)
PROC: 0RG2071 Fusion of 2 or more Cervical Vertebral Joints with Autologous Tissue Substitute, Posterior Approach, Posterior Column, Open Approach (ICD-10-PCS; 2018-12-31)
PROC: 01N10ZZ Release Cervical Nerve, Open Approach (ICD-10-PCS; 2018-12-31)
DX: M48.02 Spinal stenosis, cervical region (principal); G82.50 Quadriplegia, unspecified; I50.9 Heart failure, unspecified; G95.20 Unspecified cord compression; Z68.41 Body mass index [BMI] 40.0-44.9, adult; M41.9 Scoliosis, unspecified; R13.10 Dysphagia, unspecified; K75.9 Inflammatory liver disease, unspecified; M50.21 Other cervical disc displacement, high cervical region; M48.061 Spinal stenosis, lumbar region without neurogenic claudication; M51.36 Other intervertebral disc degeneration, lumbar region; E66.9 Obesity, unspecified; E78.5 Hyperlipidemia, unspecified; E87.6 Hypokalemia; I10 Essential (primary) hypertension; I87.2 Venous insufficiency (chronic) (peripheral); J44.9 Chronic obstructive pulmonary disease, unspecified; M47.816 Spondylosis without myelopathy or radiculopathy, lumbar region; E11.9 Type 2 diabetes mellitus without complications; E78.00 Pure hypercholesterolemia, unspecified; F17.200 Nicotine dependence, unspecified, uncomplicated; K59.00 Constipation, unspecified; M10.9 Gout, unspecified; M17.12 Unilateral primary osteoarthritis, left knee; R29.6 Repeated falls; M60.9 Myositis, unspecified; T38.0X5A Adverse effect of glucocorticoids and synthetic analogues, initial encounter; Y92.89 Other specified places as the place of occurrence of the external cause; M50.11 Cervical disc disorder with radiculopathy, high cervical region; M19.039 Primary osteoarthritis, unspecified wrist; Z91.81 History of falling; D64.9 Anemia, unspecified; Z79.84 Long term (current) use of oral hypoglycemic drugs
CPT/HCPCS: 36415; 71045; 72040; 72141; 72146; 72148; 73100; 73130; 73560; 76000; 76705; 80048; 80061; 80076; 80305; 80320; 81003; 82085; 82164; 82550; 82962; 83036; 83520; 83615; 83735; 83880; 84100; 84145; 84439; 84443; 84481; 84484; 84550; 85651; 86038; 86141; 86160; 86200; 86225; 86235; 86256; 86430; 86705; 86709; 86803; 86850; 86900; 87340; 87389; 88304; 88311; 92610; 93005; 93306; 93970; 93971; 94640; 95925; 95926; 95928; 95929; 96374; 97110; 97116; 97162; 97167; 97168; 97530; 97535; 99285; C1713; C1893; J0690; J0696; J1100; J1170; J1200; J1650; J1885; J2270; J2370; J2405; J2704; J2710; J2765; J3010; J3490; J7050; J7121; J7512; J7620; J7626; L0172

== ENCOUNTER 2019-02-13 13:16 | Inpatient (IN) | payer MEDICAID ==
[~2019-02-13] VITALS: Ht 182.9 cm; Wt 116.1 kg
[2019-02-13] MEDS ORDERED: ONDANSETRON HCL 4MG/2ML INJ IV STA (14:42)
[2019-02-13] MEDS ORDERED: MORPHINE SULFATE 4 MG/ML CPJ (NOT FOR IM USE) IV STA (14:42)
[2019-02-13 15:41] LABS: BASOPHILS % 0.3 % (0.0-2.0); EOSINOPHILS % 0.3 % (0.0-5.0); HEMATOCRIT. 37.7 % (42.0-52.0); HEMOGLOBIN. 12.2 g/dL (14.0-18.0); LYMPHOCYTES % 11.5 % (20.0-50.0); MEAN CORPUSCULAR HEMOGLOBIN 28.1 pg (28.0-32.0); MEAN CORPUSCULAR VOLUME 86.6 fL (80.0-94.0); MEAN PLATELET VOLUME 8.5 fl (7.4-10.4); MONOCYTES % 8.7 % (2.0-8.0); NEUTROPHILS % 79.2 % (40.0-76.0); PLATELET 361 x1000/uL (130-400); RED BLOOD CELL COUNT 4.35 mill/uL (4.7-6.1); RED CELL DISTRIBUTION WIDTH 15.4 % (11.6-14.6)
[2019-02-13 15:44] LABS: CHLORIDE 107 mEq/L (98-107)
[2019-02-13 21:10] VITALS: BP 134/78
[2019-02-13 22:31] VITALS: BP 117/65
[2019-02-14] VITALS: BP 133/82
[2019-02-14] MEDS ORDERED: DOCUSATE SODIUM 100MG CAPSULE PO PRN
[2019-02-14] MEDS ORDERED: MAGNESIUM/ALUMINUM HYDROXIDE/SIMETHICONE 30ML UDC PO PRN
[2019-02-14] MEDS ORDERED: ONDANSETRON HCL 4MG/2ML INJ IV PRN
[2019-02-14] MEDS ORDERED: CLONIDINE 0.1MG TABLET PO PRN
[2019-02-14] MEDS ORDERED: ENOXAPARIN 40MG/0.4ML SYR SUBCUT SCH
[2019-02-14] MEDS ORDERED: ACETAMINOPHEN 325MG TABLET PO PRN
[2019-02-14] MEDS: FUROSEMIDE 40MG/4ML VIAL IV SCH ×2 (01:07→09:49)
[2019-02-14 04:00] VITALS: BP 127/76
[2019-02-14 07:39] LABS: BASOPHILS % 0.3 % (0.0-2.0); EOSINOPHILS % 1.1 % (0.0-5.0); HEMOGLOBIN. 11.4 g/dL (14.0-18.0); LYMPHOCYTES % 19.5 % (20.0-50.0); MEAN CORPUSCULAR HEMOGLOBIN 28.1 pg (28.0-32.0); MEAN CORPUSCULAR VOLUME 86.2 fL (80.0-94.0); MEAN PLATELET VOLUME 8.3 fl (7.4-10.4); MONOCYTES % 10.2 % (2.0-8.0); NEUTROPHILS % 68.9 % (40.0-76.0); PLATELET 342 x1000/uL (130-400); RED BLOOD CELL COUNT 4.06 mill/uL (4.7-6.1); RED CELL DISTRIBUTION WIDTH 15.5 % (11.6-14.6)
[2019-02-14 07:55] LABS: CHLORIDE 105 mEq/L (98-107)
[2019-02-14 08:00] VITALS: BP 111/70
[2019-02-14 08:17] LABS: LDL CHOLESTEROL 124 mg/dL (5-100)
[2019-02-14 08:19] LABS: HDL CHOLESTEROL 36 mg/dL (40-59)
[2019-02-14] MEDS ORDERED: ENOXAPARIN 30MG/0.3ML SYR SUBCUT SCH (09:00)
[2019-02-14] MEDS ORDERED: ASPIRIN 81MG EC TABLET PO SCH (09:00)
[2019-02-14 12:00] VITALS: BP 114/76
[2019-02-14 15:59] VITALS: BP 117/80
[2019-02-14 16:08] VITALS: BP 117/80
== END 2019-02-14 16:20 | disposition home or self-care (01) | DRG 351 ==
LOC: ER 13:16 → 5WST 19:59 → ENRESERV 20:56
PROVIDERS: ADMIT Hospitalist; ATTEND Hospitalist
DX: M79.89 Other specified soft tissue disorders (principal); E44.0 Moderate protein-calorie malnutrition; E11.9 Type 2 diabetes mellitus without complications; E78.00 Pure hypercholesterolemia, unspecified; I10 Essential (primary) hypertension; E78.5 Hyperlipidemia, unspecified; Z87.891 Personal history of nicotine dependence; Z68.34 Body mass index [BMI] 34.0-34.9, adult
CPT/HCPCS: 36415; 71045; 73560; 80061; 83880; 84484; 93005; 93970; 96374; 99285; J1650; J1940; J2270; J2405